=== PATIENT | male | born 1955 | race Caucasian/White ===

== ENCOUNTER 2017-12-09 15:49 | Emergency (ER) | payer MEDICAID ==
[~2017-12-09] VITALS: Ht 198.1 cm; Wt 97.1 kg
--- NOTE | 2017-12-09 16:21 | NUR ---
PT REC'D TO ER C/O ETOH
--- NOTE | 2017-12-09 16:24 | NUR ---
PT. VERBALIZED UNDERSTANDING OF AFTERCARE INSTRUCTIONS.Patient discharged to home in stable condition. Written and verbal after care instructions given. Patient verbalizes understanding of instruction.
[2017-12-09 16:25] VITALS: BP 127/70
== END 2017-12-09 16:40 | disposition home or self-care (01) ==
LOC: ER 15:51
DX: F10.129 Alcohol abuse with intoxication, unspecified (principal); G89.29 Other chronic pain; I10 Essential (primary) hypertension
CPT/HCPCS: 99283; A4606; Z7610

== ENCOUNTER 2017-12-10 10:37 | Emergency (ER) | payer MEDICAID ==
[~2017-12-10] VITALS: Ht 182.9 cm; Wt 90.7 kg
[2017-12-10] MEDS ORDERED: TDAP [DIPH/PERTUSSIS/TET] 0.5 ML VIAL IM ONE ×2 (11:00→11:51)
--- NOTE | 2017-12-10 11:00 | NUR ---
[id number] S/P FALL WHILE SITTING ON A WALL, NO KO, DENIES NECK AND BACK PAIN NOSAL BRIDGE LACERATION (H/O HIV), NAD NOTED, VSS, RESP EVEN AND UNLABORED, PT PUT ON MONITOR.
[2017-12-10 12:37] VITALS: BP 127/75
--- NOTE | 2017-12-10 12:38 | NUR ---
Patient discharged to home in stable condition. Written and verbal after care instructions given. Patient verbalizes understanding of instruction. Prescription given.
== END 2017-12-10 12:39 | disposition home or self-care (01) ==
LOC: ER 10:39
DX: S63.91XA Sprain of unspecified part of right wrist and hand, initial encounter (principal); S63.92XA Sprain of unspecified part of left wrist and hand, initial encounter; S00.12XA Contusion of left eyelid and periocular area, initial encounter; S00.212A Abrasion of left eyelid and periocular area, initial encounter; S00.31XA Abrasion of nose, initial encounter; S00.81XA Abrasion of other part of head, initial encounter; I10 Essential (primary) hypertension; F32.9 Major depressive disorder, single episode, unspecified; Z60.2 Problems related to living alone; W13.8XXA Fall from, out of or through other building or structure, initial encounter; Y93.89 Activity, other specified; Y92.89 Other specified places as the place of occurrence of the external cause; Y99.8 Other external cause status
CPT/HCPCS: 70450; 70486; 73130 ×2; 90471; 90715; 99284; A4606; A6402; Z7610

== ENCOUNTER 2017-12-10 13:04 | Emergency (ER) | payer MEDICAID ==
[~2017-12-10] VITALS: Ht 182.9 cm; Wt 90.7 kg
--- NOTE | 2017-12-10 13:20 | NUR ---
BB SELF FOR SI, "I WOULD LIKE TO JUMP IN FRONT OF TRAFFIC CAUSE I HAVE NOWHERE TO GO" SEEN HERE EARLIER IN TH ER, NAD NOTED, VSS, RESP EVEN AND UNLABORED, PT PUT ON MONITOR. WAITING MD CORTEZ.
[2017-12-10 13:24] LABS: BASOPHILS # (AUTO) 0.1 /CMM (0.0-0.2); BASOPHILS % (AUTO) 0.4 % (0.0-2.0); EOSINOPHILS # (AUTO) 0.2 /CMM (0.0-0.7); EOSINOPHILS % (AUTO) 1.3 % (0.0-6.0); HEMATOCRIT 48 % (39-51); HEMOGLOBIN 16.4 g/dL (13.5-17.5); LYMPHOCYTES # (AUTO) 3.3 /CMM (0.8-4.8); LYMPHOCYTES % (AUTO) 23.1 % (20.0-44.0); MEAN CORPUSCULAR HEMOGLOBIN 29 PG (26.0-33.0); MEAN CORPUSCULAR HGB CONC 34 g/dl (31.0-36.0); MEAN CORPUSCULAR VOLUME 85 fL (80-96); MONOCYTES % (AUTO) 6.8 % (2.0-12.0); NEUTROPHILS # (AUTO) 9.7 /CMM (1.8-8.9); NEUTROPHILS % (AUTO) 68.4 % (43.0-81.0); PLATELET COUNT (AUTO) 274 /CMM (150-450); RDW COEFFICIENT OF VARIATION 15.3 (11.5-15.0); WHITE BLOOD COUNT (AUTO) 14.3 K/uL (4.3-11.0)
[2017-12-10 13:34] LABS: CALCIUM, SERUM 8.8 mg/dL (8.5-10.1); CARBON DIOXIDE 26 mmol/L (21-32); CHLORIDE 104 mmol/L (98-107); CREATININE 0.9 mg/dL (0.6-1.3); GLUCOSE 126 mg/dL (74-106); POTASSIUM 3.8 mmol/L (3.5-5.1); SODIUM SERUM 144 mmol/L (136-145); UREA NITROGEN, BLOOD 13 mg/dL (7-18)
[2017-12-10 13:47] LABS: ACETAMINOPHEN < 2 ug/ml (10-30); ALANINE AMINOTRANSFERASE 34 U/L (12-78); ALBUMIN 3.9 g/dL (3.4-5.0); ALCOHOL, BLOOD 206 mg/dL (0-0); ALKALINE PHOSPHATASE 108 U/L (46-116); ASPARTATE AMINOTRANSFERASE 53 U/L (15-37); BILIRUBIN,DIRECT 0.1 mg/dL (0.0-0.2); BILIRUBIN,TOTAL 0.4 mg/dL (0.2-1.0); TOTAL PROTEIN, SERUM 8.2 g/dL (6.4-8.2)
[2017-12-10] MEDS ORDERED: CHLORDIAZEPOXIDE HCL 25 MG CAPSULE ONE (14:00)
[2017-12-10] MEDS ORDERED: CHLORDIAZEPOXIDE HCL 25 MG CAPSULE PO ONE (14:00)
[2017-12-10 14:15] LABS: APPEARANCE,URINE Slightly Cloudy (CLEAR); BILIRUBIN,URINE Negative (NEGATIVE); BLOOD, URINE Trace-lysed Ery/uL (NEGATIVE); COLOR,URINE Dark (YELLOW); KETONES,URINE Negative (NEGATIVE); LEUKOCYTE ESTERASE ,URINE Negative (NEGATIVE); NITRITE, URINE Negative (NEGATIVE); PH,URINE 5.5 (5.0-8.0); PROTEIN,URINE 100 mg/dl (NEGATIVE); UGLUCOSE Negative (NEGATIVE); UROBILINOGEN,URINE 0.2 EU/dL (0.2)
--- NOTE | 2017-12-10 14:15 | NUR ---
URINE SENT TO LAB
--- NOTE | 2017-12-10 14:23 | NUR ---
JOY CALLED ETA 1HR.
[2017-12-10 14:28] LABS: BACTERIA,URINE Moderate /HPF (None Seen); SQUAMOUS EPITHELIAL CELL,UR Few /HPF (None Seen)
[2017-12-10 14:30] LABS: WBC,URINE 0-2 /HPF (0-3)
[2017-12-10 14:31] LABS: FINE GRANULAR CASTS,URINE Rare /LPF (None Seen); HYALINE CASTS, URINE Rare /LPF (None Seen); MUCUS,URINE Moderate /LPF (None Seen)
--- NOTE | 2017-12-10 18:02 | NUR ---
NO CALL FROM [facility]. JOY NOTIFIED.
--- NOTE | 2017-12-10 19:00 | NUR ---
SNACKS PROVIDED TO PT.
--- NOTE | 2017-12-10 21:01 | NUR ---
DAVID CALLED [facility] [phone] TRANFER #[id number]
[2017-12-10 21:09] VITALS: BP 139/77
--- NOTE | 2017-12-10 21:09 | NUR ---
REPORT GIVEN TO TRINIDAD HAWTHORNE CHARGE NURSE.
== END 2017-12-10 22:29 ==
LOC: ER 13:06
DX: R45.851 Suicidal ideations (principal); I10 Essential (primary) hypertension; F32.9 Major depressive disorder, single episode, unspecified; F17.200 Nicotine dependence, unspecified, uncomplicated; Z60.2 Problems related to living alone
CPT/HCPCS: 36415; 80048; 80076; 80305; 80329; 81001; 85025; 87086; 99285; 99406; A4606; G0480 ×2; Z7610; 81000-TC

== ENCOUNTER 2019-04-18 14:53 | Emergency (ER) | payer BC, MEDICAID ==
[~2019-04-18] VITALS: Ht 198.1 cm; Wt 94.3 kg
[2019-04-18] MEDS ORDERED: IV NS 0.9% 1,000 ML BAG IV ONE (15:00)
--- NOTE | 2019-04-18 15:15 | NUR ---
PATIENT DENT[place] RA 62,BY-STANDER CALLED 911,LAYING ON THE GROUND AT A PARKING LOT, REPORTING HE WANTS TO SOBER UP
[2019-04-18 18:58] VITALS: BP 127/70
--- NOTE | 2019-04-18 18:59 | NUR ---
PATIENT RESTING ON BED. AROUSABLE THROUGH VERBAL AND TACTILE STIMULI. NO ACUTE DISTRESS. DENIES ANY PAIN OR DISCOMFORT. WILL CONTINUE TO MONITOR
--- NOTE | 2019-04-18 19:38 | NUR ---
IV removed. Catheter intact and site benign. Pressure and 4x4 applied to site. No bleeding noted. Patient reported that he was just kicked out of sober living. does not want any referrals. verbalized that he will ride the cab to get to his car. offered tap card but patient insisted to ride a cab, verbalized he will pay out of pocket if staff can call a cab for him. cab called for patient. Patient discharged to home in stable condition. Written and verbal after care instructions given. Patient verbalizes understanding of instruction.
== END 2019-04-18 19:43 | disposition home or self-care (01) ==
LOC: ER 15:00
DX: F10.129 Alcohol abuse with intoxication, unspecified (principal); I10 Essential (primary) hypertension; F32.9 Major depressive disorder, single episode, unspecified; Z60.2 Problems related to living alone; Y90.7 Blood alcohol level of 200-239 mg/100 ml
CPT/HCPCS: 36415; 80307; 99283; J7030 ×2; G0480